=== PATIENT | male | born 1940 | race Caucasian/White ===

== ENCOUNTER 2018-04-13 07:30 | Inpatient (IN) ==
[2018-04-06 13:16] LABS: Appearance,Urine CLEAR; Bilirubin,Urine NEG (NEG); Color,Urine YELLOW; Glucose,Urine (UA) NEGATIVE (NEG); Leukocyte Esterase,Urine NEG /uL (NEG); Protein,Urine NEG (NEG); Specific Gravity,Urine 1.012 (1.000-1.035); Urine Blood NEG mg/dL (<0.03); Urobilinogen,Urine NEG (NEG)
[2018-04-06 14:21] LABS: Blood Urea Nitrogen 15 mg/dl (8-23)
[2018-04-06 14:25] LABS: Basophils # (Auto) 0 K/mcL (0.0-0.3); Basophils % (Auto) 0.5 % (0.0-2.0); Eosinophils # (Auto) 0.2 K/mcL (0.0-0.7); Granulocytes % (Auto) 67.8 % (38.0-78.0); Lymphocytes # (Auto) 1.1 K/mcL (1.5-4.8); Mean Cell Volume 92.2 fL (80.0-100.0); Mean Corpuscular HGB Conc 33.9 g/dL (31.0-36.0); Mean Corpuscular Hemoglobin 31.3 pg (26.0-34.0); Monocytes # (Auto) 0.5 K/mcL (0.1-0.9); Monocytes % (Auto) 8.7 % (1.0-12.0); Platelet Count 255 K/mcL (140-440); RBC 4.65 M/mcL (4.50-5.90); Red Cell Distribution Width 13.7 % (11.5-14.5)
[~2018-04-13 07:30] MED LIST: CELECOXIB 200 MG CAPSULE PO SCH; PREGABALIN 75 MG CAPSULE PO SCH; ceFAZolin 1 GM VIAL IV SCH; oxyCODONE 10 MG TAB.ER.12H PO SCH
[2018-04-13] MEDS ORDERED: HEPARIN 20,000 UNIT/ML VIAL IR ONE (12:48)
[2018-04-13] MEDS ORDERED: ONDANSETRON 4 MG/2 ML VIAL IV ONE (13:45)
[2018-04-13] MEDS ORDERED: PROPOFOL 200 MG/20 ML VIAL IV ONE (13:45)
[2018-04-13] MEDS ORDERED: LIDOCAINE HCL/PF 100 MG/5 ML SYRINGE IV ONE (13:45)
[2018-04-13] MEDS ORDERED: ePHEDrine 50 MG/ML AMPUL IV ONE (13:45)
[2018-04-13] MEDS ORDERED: MIDAZOLAM 5 MG/5 ML VIAL IV ONE (13:45)
[2018-04-13] MEDS ORDERED: DEXAMETHASONE 10 MG/ML VIAL IV ONE (13:45)
[2018-04-13] MEDS ORDERED: TRANEXAMIC ACID 1,000 MG/10 ML VIAL IV ONE ×2 (13:45→15:11)
[2018-04-13] MEDS ORDERED: MEPERIDINE 25 MG/ML SYRINGE IV PRN (15:08)
[2018-04-13] MEDS ORDERED: fentaNYL 100 MCG/2 ML VIAL IV PRN (15:08)
[2018-04-13] MEDS ORDERED: ONDANSETRON 4 MG/2 ML VIAL IV PRN ×2 (15:08→15:11)
[2018-04-13] MEDS ORDERED: FLUMAZENIL 0.1 MG/ML ML IV PRN (15:08)
[2018-04-13] MEDS ORDERED: PROMETHAZINE 25 MG/ML VIAL IV PRN (15:08)
[2018-04-13] MEDS ORDERED: LACTATED RINGERS 250 ML IV PRN (15:08)
[2018-04-13] MEDS ORDERED: diphenhydrAMINE 50 MG/ML VIAL IV PRN (15:08)
[2018-04-13] MEDS ORDERED: BENZOCAINE/MENTHOL 1 LOZENGE PO PRN ×2 (15:08→15:11)
[2018-04-13] MEDS ORDERED: NALOXONE HCL 0.4 MG/ML VIAL IV PRN (15:08)
[2018-04-13] MEDS ORDERED: ACETAMINOPHEN 1,000 MG/100 ML BOTTLE IV ONE (15:08)
[2018-04-13] MEDS ORDERED: IPRATROPIUM/ALBUTEROL 3 ML AMPUL.NEB NEB PRN (15:08)
[2018-04-13] MEDS ORDERED: MAGNESIUM HYDROXIDE 30 ML ORAL.SUSP PO PRN (15:11)
[2018-04-13] MEDS ORDERED: POLYETHYLENE GLYCOL 3350 17 GM PACKET PO PRN (15:11)
[2018-04-13] MEDS ORDERED: KETOROLAC 15 MG/ML VIAL IV PRN (15:11)
[2018-04-13] MEDS ORDERED: BISACODYL 10 MG SUPP.RECT PR PRN (15:11)
[2018-04-13] MEDS ORDERED: FLEETS ADULT ENEMA PR PRN (15:11)
--- NOTE | 2018-04-13 15:11 | Brief Operative Note ---
Date of procedure: 04/13/18 Pre-op diagnosis: Right hip severe DJD Post-op diagnosis: same Procedure: Right anterior total hip arthroplasty Grafts/Implants: Yes (Depuy Actis 6 Hi stem, +1.5 36 delta head, 56 cup, neutral liner) Anesthesia: spinal, GLMA Findings: severe arthritis Complications: none Surgeon: Germán Malone Head Baggage Porter: Jeffrey Jeffrey Estimated blood loss (cc): 150 Specimens Removed/Pathology: none sent Condition: stable Disposition: PACU
[2018-04-13] MEDS ORDERED: LACTATED RINGERS 1,000 ML IV SCH (15:15)
[2018-04-13] MEDS: 0.9 % SODIUM CHLORIDE 1,000 ML IV SCH (16:29)
--- NOTE | 2018-04-13 17:11 | XRay Report ---
CLINICAL INFORMATION: anterior total hip COMPARISON: None. FINDINGS: Multiple digital images from the operating room show right total hip prostheses in anatomic position. No osseous abnormality. Soft tissues normal IMPRESSION: Anatomic positioning of total right hip prostheses Interpreted and Authenticated by: Boyd Conklin 04/13/18
--- NOTE | 2018-04-13 18:45 | XRay Report ---
CLINICAL INFORMATION: Post-op Total Hip COMPARISON: None. FINDINGS: Right total hip prostheses is anatomically aligned. No osseous abnormality. Soft tissues swelling over the surgical site. IMPRESSION: Negative Interpreted and Authenticated by: Boyd Conklin 04/13/18
[2018-04-13] MEDS: DOCUSATE SODIUM 100 MG CAPSULE PO SCH (20:39)
[2018-04-13] MEDS: ASPIRIN 325 MG ENTERIC COATED TABLET PO SCH (20:39)
[2018-04-13] MEDS: oxyCODONE/APAP 5/325MG TABLET PO PRN ×2 (20:39→21:56)
[2018-04-13] MEDS: ceFAZolin 1 GM VIAL IV SCH (20:39)
[2018-04-13] MEDS ORDERED: SENNOSIDES 1 TABLET PO SCH (21:00)
[2018-04-13] MEDS ORDERED: SIMVASTATIN 20 MG TABLET PO SCH (21:00)
[2018-04-13] MEDS: 0.9 % SODIUM CHLORIDE 10 ML SYRINGE IV SCH (22:00)
[2018-04-14] MEDS: 0.9 % SODIUM CHLORIDE 1,000 ML IV SCH (02:35)
[2018-04-14] MEDS: oxyCODONE/APAP 5/325MG TABLET PO PRN ×2 (04:28→11:15)
[2018-04-14] MEDS: ceFAZolin 1 GM VIAL IV SCH (04:28)
[2018-04-14] MEDS: 0.9 % SODIUM CHLORIDE 10 ML SYRINGE IV SCH (06:05)
--- NOTE | 2018-04-14 07:37 | Operative Note ---
DATE OF OPERATION: 04/13/2018 PREOPERATIVE DIAGNOSIS: Right hip severe osteoarthritis. POSTOPERATIVE DIAGNOSIS: Right hip severe osteoarthritis. PROCEDURE PERFORMED: Right anterior total hip arthroplasty placing a DePuy Actis size 6 high offset femoral stem, a +1.5, 36 mm delta ceramic head ball, a 56 Essex cup with a neutral Altrx liner. SURGEON: Germán Malone MD OPHTHALMIC PHOTOGRAPHER: Julian Jeffrey PA-C. ANESTHESIA: Spinal plus general. DRAINS: None. SPECIMENS: None. COMPLICATIONS: None. BLOOD LOSS: 150 mL POSTOPERATIVE CONDITION: Stable. INDICATIONS FOR SURGERY: This is an 78-year-old male who had progressive worsening severe right hip pain. Radiographs showed severe [id number] osteoarthritis. FINDINGS AT SURGERY: Severe osteoarthritis. Post implantation showed satisfactory component position with equalization of leg length and offset. PROCEDURE IN DETAIL: The patient had been seen preoperatively. Informed consent had been obtained after discussion of risks, benefits of surgery. Risks including, but not limited to, bleeding, possibly requiring transfusion; infection, possibly requiring implant removal and prolonged IV antibiotics; injury to nerves, blood vessels other surrounding structures; anesthetic risks; incomplete or no resolution of symptoms; leg length discrepancy; dislocation; fracture; DVT and pulmonary embolus risks; and the possibility of needing further revision surgery. He understood these risks and wished to proceed. Correct operative site was marked in preoperative holding and patient was taken to the operating room after spinal anesthesia was given. He was given LMA general anesthesia and then carefully positioned on the fracture table. The right hip and groin were carefully prepped and draped in normal sterile fashion. A timeout was performed verifying patient name, operative site, and plan. Ioban was used to cover the skin surfaces and a standard anterior approach incision was made with a scalpel through skin and subcutaneous tissue. Hemostasis was obtained with Bovie cautery. Careful blunt dissection was taken down onto the tensor fascia and this was undermined circumferentially. IrriSept was irrigated and then a ring retractor was placed. The tensor fascia was incised in line with the muscle fibers. This was a somewhat friable tissue layer. We went ahead and placed blunt cobra retractors on the superior and inferior neck. Circumflex vessels were coagulated and cut and vastus fascia split distally. He had a very thickened anterior capsule. We did perform an anterior capsulectomy and capsule releases out towards the trochanter. A corkscrew was placed in the femoral head. Osteotome was used under fluoro to identify our neck cut trajectory and then oscillating saw was used to make our neck cut. The femoral head was removed and the acetabulum exposed. Labrum was excised circumferentially as well as soft tissue removed from the floor. Reamer was used to directly medialize and increase reamer size and angle until we felt we had adequate rim ream with a 55 reamer. We opened a 56 3-hole Essex cup. We irrigated the acetabulum with IrriSept. After a minute we pulse lavaged copiously with saline. The cup was then impacted at approximately 35 to 40 degrees of inclination and 30 degrees of anteversion. We got good press-fit, so a center hole cover was placed and then a neutral AltrX liner was carefully aligned. We did use a curved osteotome to remove some of the anterior osteophyte. We then removed traction from the leg. It was externally rotated and capsule release was continued around the medial and posterior neck. The leg was then extended and adducted and capsule was released with the cautery out towards the greater trochanter. Once we had adequate exposure of the proximal femur a box osteotome was used to initiate canal entry and then awl was used to identify canal trajectory. Rongeur and rasp were used to lateralize. We then began sequentially broaching up to a size 5, which seemed to seat at about our neck cut level. We placed a trial standard offset neck with a 1.5 head ball. The hip was reduced without significant tension. Fluoro was brought in and AP pelvis was taken to verify neutral rotation. We then took AP of the nonoperative and operative hips. Overlay the x-rays revealed leg lengths equal; however, the offset was under on our operative side and the stem appeared undersized, so we went ahead and redislocated and exposed the proximal femur. I was able to impact the 5 broach down a little lower, so I went up to a size 6 broach, which I was able to seat almost to our neck cut. We went ahead and opened a 6 high offset stem. We irrigated the femoral canal with IrriSept and after a minute pulse lavaged with saline and then impacted the stem. The collar did sit above the neck cut several millimeters. We opened a 1.5, 36 mm delta head ball. The stem was carefully cleaned and dried and then the head ball was briskly impacted. The hip was reduced with better tension. Final fluoro images were taken and saved. We irrigated the joint with IrriSept, after a minute pulse lavaged with saline in a running #1 Vicryl was used for the tensor fascia. The ring retractor was removed and another IrriSept irrigation done, after a minute more pulse lavage and then fat was tacked to fascia with Vicryl, 2-0 Monocryl was used for subcutaneous and verna were used for skin. Xeroform sterile dressings were applied. The patient was awakened, extubated, and transferred to recovery in stable condition. [email or web address] Job ID: [id number] Doc ID: [id number] Germán Malone MD
--- NOTE | 2018-04-14 07:50 | Discharge Summary ---
Providers - Providers Patient information: Note initiated : 04/14/18 at 7:47 am Service Date, if different from initiated Date: [] Patient: Barak Jo 78 y/o M admitted on 04/13/18 for Right Anterior Total Hip Arthroplasty. Chief Complaint: [] Discharge date: 04/14/18 Hospitalization Hospital course: Pt was admitted for a CHANDLER, Pt underwent the procedure the day of admission. Pt spent one night on the floor for IV pain meds, IV abx and PT. Discharged on post -op day 1. Will use ASA for DVT prophylaxis and attend out-pt PT. Discharge diagnosis: R Hip OA Exam - Exam Clean and dry: Yes Weight bearing status: as tolerated Ortho Discharge - CHANDLER - Patient Instructions Diet: Regular Diet Activity: activity as tolerated Total Hip Protocol: Follow activity instructions as provided by Physical Therapy. Dressing Care: May shower in 2 days - Follow Up Plan Disposition: Home, Self-Care Prognosis: Good Rehab Potential: Good Overall status at discharge: patient is progressing back to baseline - Orders For Discharge Prescriptions: Aspirin [Ecotrin] 325 mg PO BID #60 tab.ec HYDROcodone/ACETAMINOPHEN [Redford 10-325 Tablet] 1 - 2 each PO Q4-6HP PRN #90 tab PRN Reason: Pain Pending Studies Resuscitation Status Full Code Diet Regular Diet Start WedApr 13 1513 Aspirin (Ecotrin) 325 mg PO BID [facility] Last Admin: 04/13/18 20:39 Dose: 325 mg Docusate Sodium (Colace) 100 mg PO BID [facility] Last Admin: 04/13/18 20:39 Dose: 100 mg Sodium Chloride (Sodium Chloride 0.9%) 1,000 mls @ 100 mls/hr IV .Q10H [facility] Last Infusion: 04/14/18 06:05 Dose: 0 mls/hr Admin: 04/14/18 02:35 Dose: 100 mls/hr Infusion: 04/14/18 02:29 Dose: 100 mls/hr Admin: 04/13/18 16:29 Dose: 100 mls/hr Ketorolac Tromethamine (Toradol) 15 mg IV Q6HP PRN PRN Reason: Pain Stop: 04/15/18 15:14 Last Admin: 04/14/18 00:22 Dose: 15 mg Oxycodone/Acetaminophen (Percocet 5-325 Mg) 0 tab PO Q4HP PRN PRN Reason: PAIN LEVEL 3-6 Last Admin: 04/14/18 04:28 Dose: 2 tab Admin: 04/13/18 21:56 Dose: 1 tab Admin: 04/13/18 20:39 Dose: 1 tab Senna (Senokot) 2 tab PO HS LAYO Last Admin: 04/13/18 20:39 Dose: 2 tab Simvastatin (Zocor) 20 mg PO HS LAYO Last Admin: 04/13/18 20:39 Dose: 20 mg Sodium Chloride (Saline Flush) 10 ml IV Q8 [facility] Last Admin: 04/14/18 06:05 Dose: 10 ml Admin: 04/13/18 22:00 Dose: Not Given Shift Summary 04/14/18 04:04 Shift Summary by Deb Sr Patient alert and oriented. Slept for few hours this shift. Medicated for pain with Percocet 1 tab x2 and Toradol IV x1 with moderate effect. Up with SBA using FWW and GB. Ambulated in hallway community health. Eating and drinking well. Will saline lock IV near the end of the shift. Voids using the urinal. Voids several times, adequate amount. PVR 284 mls at midnight. Dressing on right hip CDI. VSS. Initialized on 04/14/18 04:04 - END OF NOTE
[2018-04-14] MEDS: ASPIRIN 325 MG ENTERIC COATED TABLET PO SCH (08:54)
[2018-04-14] MEDS: DOCUSATE SODIUM 100 MG CAPSULE PO SCH (08:54)
== END 2018-04-14 12:15 | disposition home or self-care (01) | DRG 470 ==
LOC: MEDSUR 09:08
PROVIDERS: ADMIT Orthopaedic Surgery; ATTEND Orthopaedic Surgery
CPT/HCPCS: 62322; 73502; 97161; C1776; J0131; J0690; J1100; J1644; J1885; J2001; J2250; J2405; J7030; J7120